=== PATIENT | female | born 1930 | race Caucasian/White ===

== ENCOUNTER 2017-03-10 11:49 | Day surgery (SDC) | payer BC ==
[~2017-03-10] VITALS: Ht 152.4 cm; Wt 55.9 kg
[2017-03-10 12:22] VITALS: Ht 152.4 cm; Wt 55.9 kg
[2017-03-10] MEDS ORDERED: AMLODIPINE (12:27)
[2017-03-10] MEDS ORDERED: LOSARTAN (12:27)
[2017-03-10] MEDS ORDERED: HCTZ (12:27)
[2017-03-10] MEDS ORDERED: PROPOFOL 40 ML ONE (13:50)
--- NOTE | 2017-03-10 14:11 | OPPN ---
Date/Time of Note Date/Time of Note DATE: 03/10/17 TIME: 14:09 Operative Report Preoperative Diagnosis Abdominal pain Chronic heartburn Postoperative Diagnosis Reflux esophagitis Gastritis with erosions Gastric nodule on the antrum and biopsies were taken Operation/Procedure Performed Esophagogastroduodenoscopy and biopsy Surgeon see signature line funeral assistant None Anesthesia: MAC Estimated blood loss: none Transfusion Required none Specimen Gastric mucosal biopsy Grafts/Implants none Complications none RENETTA AVITIA MD Mar 10, 2017 14:11
--- NOTE | 2017-03-10 14:34 | GILP ---
DATE OF PROCEDURE: NAME OF PROCEDURES: Esophagogastroduodenoscopy and biopsy. SURGEON: Renetta Galo MD PREOPERATIVE DIAGNOSES: 1. Abdominal pain. 2. Chronic heartburn. POSTOPERATIVE DIAGNOSES: 1. Gastroesophageal reflux disease. 2. Gastritis with erosions. 3. Gastric mucosal biopsies were taken for H. pylori test. 4. Nodule in the gastric antrum and biopsies were taken for histopathology. INDICATION FOR THE PROCEDURE: Ms. Son Trivedi is an 86-year-old female patient who had upper a bdominal pain and chronic heartburn, not responding to therapy. The patient was scheduled for endos copic examination for further evaluation. The procedure and possible complications were well explained to the patient, she understood and cons ented to the procedure. DESCRIPTION OF PROCEDURE: Under the influence of anesthesia, the gastroscope was carefully introduc ed into the esophagus and under direct vision, it was advanced to the stomach and through the pyloru s into the duodenal bulb and descending duodenum. FINDINGS: ESOPHAGUS: The patient had gastroesophageal reflux disease. STOMACH: She had gastritis with erosions. Gastric mucosal biopsies were taken for H. pylori test. The patient was noted to have a nodule on the gastric antrum and biopsies were taken for histopatho logy. DUODENUM: Normal. She tolerated the procedure very well and there was no complication from the procedures. At the end of the procedures, she was awake with stable vital signs and she was discharged home to the care of her family. IMPRESSION: Please see postoperative diagnosis. PLAN: 1. Nexium 24 hours p.o. q.a.m. 2. Await histopathology reports. Dictated By: RENETTA ARCINIEGA/JEAN PIERRE Conf#: [id number] DID#: [id number]
[2017-03-10 14:38] VITALS: BP 180/74; PULSE 72; RESP 20
--- NOTE | 2017-03-11 11:13 | CONS ---
DATE OF ADMISSION: 03/10/2017 DATE OF CONSULTATION: HISTORY OF PRESENT ILLNESS: ____ is an 86-year-old female patient who has been referred to me f or further evaluation of upper abdominal pain and chronic heartburn, not responding to therapy with Zantac. No past history of peptic ulcer disease, not on nonsteroidal anti-inflammatory agents. Her appetite is good, no weight loss. No history of gallstones or liver disease. No change in the bow el habits or rectal bleeding. No past history of colon neoplasm. The patient never got screening c olonoscopy. She is a hypertensive. Not a diabetic. No heart disease, lung problem or kidney disea se, nonsmoker. No alcohol abuse, no family history of gastrointestinal tract neoplasm. ALLERGIES: NO DRUG ALLERGIES. MEDICATIONS: 1. Zantac. 2. Amlodipine. 3. Hydrochlorothiazide. 4. Losartan. PHYSICAL EXAMINATION:: GENERAL: She is 5 feet 1 inch tall and weighs 125 pounds. HEART: Normal heart sounds. LUNGS: Clear. ABDOMEN: Soft. No masses. Normal bowel sounds. NEUROLOGIC: Normal neurological exam. IMPRESSION: 1. Upper abdominal pain and chronic heartburn, not responding to therapy with Zantac. 2. Hypertension. PLAN: Patient never got screening colonoscopy, but because of the patient's age, would not consider screening colonoscopy. Because of the patient's age, she needs monitored anesthesia care for the endoscopic procedure. The procedure and possible complications are well explained to the patient and the family. They und erstand and consent to the procedure. I thank you once again. With warmest personal regards, Dictated By: RENETTA ARCINIEGA/JEAN PIERRE Conf#: [id number] DID#: [id number]
== END 2017-03-10 15:27 | disposition home or self-care (01) ==
LOC: GIL 11:49
PROVIDERS: ATTEND Internal Medicine Gastroenterology
DX: K21.9 Gastro-esophageal reflux disease without esophagitis (principal); K29.70 Gastritis, unspecified, without bleeding
CPT/HCPCS: 43239; 87081; 88305; 88312; Z7610

== ENCOUNTER 2017-09-29 07:01 | Day surgery (SDC) | END 2017-09-29 13:15 | disposition home or self-care (01) ==